=== PATIENT | female | born 1960 | race Caucasian/White ===

== ENCOUNTER 2017-04-23 13:48 | Emergency (ER) | payer OTHER ==
[~2017-04-23] VITALS: Ht 160 cm; Wt 59.0 kg
[~2017-04-23 13:48] MED LIST: ACET-784 PO; FOLI1TAB15 PO; METH2.5T6 PO; PRED5SOL PO; PRED5TAB PO
[2017-04-23] MEDS ORDERED: ADAL10SY IM (14:01)
[2017-04-23] MEDS ORDERED: SODIUM CHLORIDE 0.9% 1,000 ML IV ONE (14:45)
[2017-04-23] MEDS ORDERED: PROCHLORPERAZINE EDISYLATE 5 MG/ML 2 ML VIAL IVP ONE (14:45)
[2017-04-23] MEDS ORDERED: DiphenhydrAMINE HCL 50 MG/ML VIAL IVP ONE (14:45)
[2017-04-23] MEDS ORDERED: KETOROLAC TROMETHAMINE 30 MG/ML VIAL IVP ONE (15:45)
[2017-04-23 16:10] VITALS: BP 177/86
== END 2017-04-23 16:46 | disposition home or self-care (01) ==
LOC: EMS 13:49
DX: G43.909 Migraine, unspecified, not intractable, without status migrainosus (principal); Z87.891 Personal history of nicotine dependence
CPT/HCPCS: 96361; 96374; 96375; 99285; J0780; J1200; J1885; J7030

== ENCOUNTER 2024-08-08 15:05 | Emergency (ER) | payer MEDICARE, OTHER ==
[~2024-08-08] VITALS: Ht 154.9 cm; Wt 61.3 kg
[~2024-08-08 15:05] MED LIST changes: +ADAL10SY IM
[2024-08-08 15:53] VITALS: TEMP 97.1
[2024-08-08] MEDS: KETOROLAC TROMETHAMINE 30 MG/ML VIAL IVP ONE (17:12)
[2024-08-08] MEDS: LORazepam 2 MG/ML VIAL IVP ONE (17:12)
[2024-08-08] MEDS: DEXAMETHASONE SOD PHOS 4 MG/ML 5 ML VIAL IVP ONE (17:12)
[2024-08-08 19:50] VITALS: BP 125/56; PULSE 73; RESP 16; O2SAT 96
== END 2024-08-08 20:00 | disposition home or self-care (01) ==
LOC: EMS 15:17
DX: G43.909 Migraine, unspecified, not intractable, without status migrainosus (principal); Z79.52 Long term (current) use of systemic steroids; Z96.659 Presence of unspecified artificial knee joint
CPT/HCPCS: 99284; 96374; 96375; J1100; J1885; J2060